=== PATIENT | male | born 1955 | race African-American/Black ===

== ENCOUNTER 2022-12-05 11:38 | Emergency (ER) | payer MEDICARE ==
[~2022-12-05] VITALS: Ht 190.5 cm; Wt 78.0 kg
[2022-12-05 11:42] VITALS: BP 142/89
[2022-12-05] MEDS ORDERED: ACETAMINOPHEN 325MG TABLET PO ONE (12:00)
== END 2022-12-05 12:27 | disposition home or self-care (01) ==
LOC: ER 12:11
DX: M25.562 Pain in left knee (principal); M25.561 Pain in right knee
CPT/HCPCS: 99283